=== PATIENT | female | born 1960 | race African-American/Black ===

== ENCOUNTER 2022-01-25 17:52 | Emergency (ER) | payer SELFPAY ==
[~2022-01-25] VITALS: Ht 167.6 cm; Wt 95.0 kg
[2022-01-25 17:56] VITALS: BP 112/63
== END 2022-01-25 18:44 | disposition left against medical advice (07) ==
LOC: ER 17:52
DX: F10.129 Alcohol abuse with intoxication, unspecified (principal); Y90.0 Blood alcohol level of less than 20 mg/100 ml
CPT/HCPCS: 99283